=== PATIENT | male | born 1970 | race Caucasian/White ===

== ENCOUNTER 2018-09-11 07:29 | Day surgery (SDC) | payer OTHER ==
--- NOTE | 2018-09-07 15:08 | RAD REPORT ---
EXAM DESCRIPTION: RAD - Chest Pa And Lat (2 Views) - 09/07/2018 2:47 pm CLINICAL HISTORY: Preop chest, pending cholecystectomy COMPARISON: February 2012 TECHNIQUE: PA and lateral views of the chest were obtained. FINDINGS: The lungs are clear. Heart size is normal and central vasculature is within normal limit s. No pleural effusion or pneumothorax seen. No acute bony finding noted. No aortic abnormality. No significant change from comparison. IMPRESSION: No acute cardiopulmonary process.
[2018-09-07 16:30] LABS: Albumin 3.7 g/dL (3.4-5.0); Bilirubin Direct 0.3 mg/dL (0-0.2); Bilirubin Total 0.9 mg/dL (0.2-1.0); Protein, Total 7.6 g/dL (6.4-8.2)
--- NOTE | 2018-09-08 14:03 | EKG ---
Test Date: 2018-09-07 Test Time: 14:41:28 Button Puncher: DAYRON MEASUREMENT RESULTS: Intervals: Rate: 71 DC: 160 QRSD: 84 QT: 370 QTc: 402 Merrill: P: 25 DC: 160 QRS: 19 T: 47 INTERPRETIVE STATEMENTS: Normal sinus rhythm Normal ECG Compared to ECG 03/28/2002 12:32:00 No significant changes Electronically Signed On 09-08-18 13:59:09 [address]ANE by Wan Saldivar
[2018-09-11] MEDS ORDERED: Ringers Lactate 1,000 ML IV ONE (07:49)
[2018-09-11] MEDS ORDERED: PROPOFOL 200 MG/20 ML VIAL IV ONE (08:15)
[2018-09-11] MEDS ORDERED: DEXAMETHASONE 10 MG/ML VIAL ONE (08:15)
[2018-09-11] MEDS ORDERED: MIDAZOLAM HCL 2 MG/2 ML INJ ONE (08:15)
[2018-09-11] MEDS ORDERED: LIDOCAINE 2% MPF 5 ML VIAL ONE (08:15)
[2018-09-11] MEDS ORDERED: FENTANYL CITR 250 MCG/5 ML ONE (08:15)
[2018-09-11] MEDS ORDERED: ROCURONIUM 50 MG/5 ML VIAL IV ONE (08:16)
[2018-09-11] MEDS ORDERED: CEFOXITIN/SWI 1gm 1 GM/10 ML SYR ONE (08:52)
[2018-09-11] MEDS: BUPIVACAINE 0.5% PF 10 ML VIAL ONE ×2 (09:08→09:23)
--- NOTE | 2018-09-11 09:30 | P.BOP ---
Preoperative diagnosis: symptomatic cholelithiasis Postoperative diagnosis: same Primary procedure: Laparoscopic cholecystectomy Director Of Occupational Therapy: Tatiana Carter (Ingrid) Estimated blood loss: <10cc Specimen: gb Findings: as above Anesthesia: General Complications: None
[2018-09-11] MEDS ORDERED: KETOROLAC 30 MG/ML INJ ONE (09:35)
[2018-09-11] MEDS ORDERED: Mastisol Adhesive Liq ONE (09:42)
[2018-09-11] MEDS ORDERED: CODEINE 30MG/APAP 300MG TAB ONE (11:12)
--- NOTE | 2018-09-11 20:56 | OP ---
Date of Procedure: 09/11/2018 Surgeon: Pawel Magana MD Product Picker: Tatiana Sun Preoperative Diagnosis: Symptomatic cholelithiasis. Postoperative Diagnosis: Symptomatic cholelithiasis. Procedure: Laparoscopic cholecystectomy. Estimated Blood Loss: Less than 10 cc. Specimen: Gallbladder. Anesthesia: General plus local. Indications: This is a case of a 47 years old patient with above diagnosis. Fully explained the zaid efits, alternatives, and risks of laparoscopic, possible open cholecystectomy, which include, but not limited to infection, bleeding, damage to adjacent structures, anesthesia complication, choledocholi thiasis, bile leak, pancreatitis, CT, and even . He also understands this may not relieve any s ymptoms, he might need more than one surgical intervention. He understood and signed a consent. The patient also advised the importance of losing weight. Description Of Procedure: The patient was brought to the operating room and placed in supine positio n. Anesthesia was induced without complication. Abdominal area was prepped and draped in a sterile fashion. Marcaine 0.5% injected for local anesthetic, followed by sharp incision of the skin in the infraumbilical region. Incision was carried down to fascia, which was opened under direct vision. P eritoneum was encountered, opened under direct vision. Vicryl #1 placed inside the fascia. Jairo t rocar was carefully introduced and pneumoperitoneum was obtained. I placed 3 more trocars, 5 mm each one of them in the epigastric and right upper quadrant. At that moment, I proceeded to put a graspe r in the fundus of the gallbladder, another grasper in the infundibulum, retracted the gallbladder in the inferolateral fashion exposing the triangle of Calot and obtaining critical view of safety. Cys tic duct and cystic artery were clearly isolated free circumferentially and a connection between thos e and the gallbladder was clearly identified. I proceeded to ligate those by using at least 3 clips proximal, 1 clip distal, and ligation in middle. Same was done with the cystic artery. No bile leak . No bleeding. The gallbladder was removed from liver using Bovie cauterizer and removed from abdom inal cavity using an EndoCatch through the umbilical incision. The area was inspected once again, no bile leak, no bleeding and candi looked intact. Gallbladder fossa with no bleeding. At that mome nt, I proceeded to remove the trocars under direct vision, deflated the pneumoperitoneum. Closed the fascia with #1 Vicryl. Irrigated subcutaneous tissue, closed that with 3-0 chromic, and the skin in a subcuticular fashion with 3-0 chromic and Steri-Strips on top. Sponge count and instrument counts were correct. The patient tolerated the procedure well. The patient was sent to Recovery in stable condition. DEJA/DANILO Voice ID: [id number] Report ID: [id number]
--- NOTE | 2018-09-11 20:59 | DS ---
Date of Discharge: 09/11/2018 Diagnosis: Symptomatic cholelithiasis. Procedure: Laparoscopic cholecystectomy. Disposition: Home. Activity: As tolerated. No heavy lifting. Followup: Follow up in my office in 1 week. Call for appointment at [phone]. Keep area dry for 48 hours, then may shower. Keep Steri-Strips intact. Medications: Include Tylenol No. 3 q.4 hours p.r.n. pain and Bactrim DS p.o. b.i.d. DEJA/DANILO Voice ID: [id number] Report ID: [id number]
== END 2018-09-11 11:44 | disposition home or self-care (01) ==
LOC: OR 07:29
PROVIDERS: ATTEND Surgery
PROC: 0FT44ZZ Resection of Gallbladder, Percutaneous Endoscopic Approach (ICD-10-PCS; principal; 2018-09-11 08:30)
DX: K80.10 Calculus of gallbladder with chronic cholecystitis without obstruction (principal); G47.33 Obstructive sleep apnea (adult) (pediatric)
CPT/HCPCS: 36415; 71046; 80048; 80076; 82150; 83690; 85025; 88304; 93005; J1100; J2250; J2704; J3010